=== PATIENT | male | born 1955 | race Caucasian/White ===

== ENCOUNTER → 2016-05-12 | Outpatient (CLI) | payer OTHER | LOC: HEART 5 09:09 | DX: R07.9 Chest pain, unspecified (principal); R06.02 Shortness of breath | CPT/HCPCS: 93306 ==

== ENCOUNTER 2016-06-07 08:28 | Emergency (ER) | payer OTHER ==
[2016-06-07 10:03] LABS: HEMOGLOBIN 15.8 gm/dl (14.0-17.5); RED BLOOD COUNT 4.91 M/UL (4.20-5.50); WHITE BLOOD COUNT 5.1 K/UL (4.5-11.0)
[2016-06-07 10:31] LABS: BUN/CREATININE RATIO 10 (0-10)
== END 2016-06-07 11:50 | disposition home or self-care (01) ==
LOC: ER1 08:28
PROVIDERS: Student in an Organized Health Care Education/Training Program
DX: J10.1 Influenza due to other identified influenza virus with other respiratory manifestations (principal); J44.9 Chronic obstructive pulmonary disease, unspecified; I51.9 Heart disease, unspecified; F17.210 Nicotine dependence, cigarettes, uncomplicated; Z88.0 Allergy status to penicillin; Z95.1 Presence of aortocoronary bypass graft; Z79.02 Long term (current) use of antithrombotics/antiplatelets; Z79.82 Long term (current) use of aspirin; Z79.899 Other long term (current) drug therapy
CPT/HCPCS: 36415; 71020; 80053; 82550; 82553; 83874; 84484; 85025; 93005; 96361; 96374; 99285; J2930; J7030

== ENCOUNTER 2016-08-15 15:05 | Emergency (ER) | payer OTHER ==
[2016-08-15 17:09] LABS: HEMOGLOBIN 16.7 gm/dl (14.0-17.5); RED BLOOD COUNT 5.14 M/UL (4.20-5.50)
[2016-08-15 17:33] LABS: BUN/CREATININE RATIO 11 (0-10)
== END 2016-08-15 22:20 | disposition home or self-care (01) ==
LOC: ER1 15:05
PROVIDERS: Preventive Medicine Occupational Medicine
DX: R07.89 Other chest pain (principal); J44.9 Chronic obstructive pulmonary disease, unspecified; I25.10 Atherosclerotic heart disease of native coronary artery without angina pectoris; Z79.82 Long term (current) use of aspirin; Z79.899 Other long term (current) drug therapy; Z88.0 Allergy status to penicillin
CPT/HCPCS: 36415; 71010; 71275; 80053; 81001; 82550; 82553; 83874; 83880; 84484; 85025; 93005; 96374; 96375; 99285; J2270; J2405; J7050; Q9963

== ENCOUNTER → 2016-09-04 | Outpatient (CLI) | payer OTHER | LOC: CT 08:30 | DX: F17.210 Nicotine dependence, cigarettes, uncomplicated (principal); R91.1 Solitary pulmonary nodule | CPT/HCPCS: G0297 ==